=== PATIENT | male | born 1990 | race Two or more races ===

== ENCOUNTER 2017-11-10 13:42 | Emergency (ER) | payer OTHER ==
[~2017-11-10] VITALS: Ht 170.2 cm; Wt 72.6 kg
[2017-11-10 13:50] VITALS: BP 147/80
[2017-11-10] MEDS ORDERED: DiphenhydrAMINE 50mg/ml Inj IM ONE (14:00)
[2017-11-10] MEDS ORDERED: LORazepam Inj 2mg/ml 1ml IM ONE (14:00)
[2017-11-10 14:51] LABS: BASOPHILS % (AUTO) 1.6 % (0.0-2.0); EOSINOPHILS % (AUTO) 0.6 % (0.0-3.0); HEMATOCRIT 49.1 % (42.0-52.0); HEMOGLOBIN 16.3 G/DL (14.2-18.0); LYMPHOCYTES % (AUTO) 20.1 % (20.0-45.0); MEAN CORPUSCULAR VOLUME 89 FL (80-99); MONOCYTES % (AUTO) 7.8 % (1.0-10.0); NEUTROPHILS % (AUTO) 69.8 % (45.0-75.0); PLATELET COUNT 364 K/UL (150-450); RED BLOOD COUNT 5.54 M/UL (4.70-6.10); RED CELL DISTRIBUTION WIDTH 11.6 % (11.6-14.8); WHITE BLOOD COUNT 10.2 K/UL (4.8-10.8)
[2017-11-10 15:01] LABS: ALANINE AMINOTRANSFERASE 32 U/L (12-78); ALBUMIN 4.2 G/DL (3.4-5.0); ALBUMIN/GLOBULIN RATIO 1.1 (1.0-2.7); ALKALINE PHOSPHATASE 121 U/L (46-116); ANION GAP 13 mmol/L (5-15); ASPARTATE AMINO TRANSFERASE 18 U/L (15-37); BILIRUBIN,TOTAL 0.4 MG/DL (0.2-1.0); BLOOD UREA NITROGEN 12 mg/dL (7-18); CALCIUM 8.7 MG/DL (8.5-10.1); CARBON DIOXIDE 25 MMOL/L (21-32); CHLORIDE 105 MMOL/L (98-107); CREATININE 1.4 MG/DL (0.55-1.30); SODIUM 144 MMOL/L (136-145)
[2017-11-10 15:06] LABS: POTASSIUM 2.7 MMOL/L (3.5-5.1)
[2017-11-10] MEDS ORDERED: Haloperidol 5mg/ml Inj IM ONE (15:15)
--- NOTE | 2017-11-10 15:45 | Emergency Room Report ---
History of Present Illness General Chief Complaint: Medical Clearance Source: Patient (Madeline Ramirez) Present Illness HPI 27 YO male presents as a Kenneth Swan to the ED for medical clearance for incarceration. pt. was behaving abnormally in public. Per PD pt. required restraint after allegedly refusing to put-down a weapon and resisting arrest. HPI and ROS are limited due to poor pt. cooperation and AMS. (Madeline Ramirez) Allergies: Coded Allergies: No Known Allergies (Unverified , 11/10/17) Patient History Limited by: other - AMS Past Medical History: see triage record, unable to obtain Past Surgical History: unable to obtain Pertinent Family History: unable to obtain Reviewed Nursing Documentation: PMH: Agreed - unable to obtain; PSxH: Agreed - unable to obtain (Madeline Ramirez) Nursing Documentation-PMH Past Medical History: No Stated History (Madeline Ramirez) Review of Systems All Other Systems: limited - AMS/ poor pt. cooperation (Madeline Ramirez) Physical Exam Vital Signs Date Time Temp Pulse Resp B/P (MAP) Pulse Ox O2 Delivery O2 Flow Rate FiO2 11/10/17 13:40 97.8 138 22 147/80 98 Room Air 97.9 Sp02 EP Interpretation: reviewed, normal General Appearance: alert, GCS 15, non-toxic, moderate distress - Pt. rapid cycling between agressive and somnolent. Head: normocephalic, atraumatic Eyes: bilateral eye normal inspection, bilateral eye PERRL, bilateral eye other - disconjugate gaze, no obvious nystagmus. Pt. clenches eyes closed. ENT: other - lower lip abrasion, superficial Respiratory: lungs clear, normal breath sounds, no wheezing, speaking full sentences Cardiovascular #1: regular rate, rhythm, normal capillary refill Gastrointestinal: normal bowel sounds, non tender, soft Musculoskeletal: back normal, gait/station normal, normal range of motion, non- tender Neurologic: responsive - to painful stimuli, motor strength/tone normal, sensory intact, other, grossly normal Psychiatric: other - initially aggravated and aggressive, required spit mask. then became somnolent Skin: normal color, no rash, warm/dry, well hydrated, abrasions - lower inner lip abrasion. (Madeline Ramirez) Medical Decision Making PA Attestation Dr. Her is my supervising Physician whom patient management has been discussed with. (Madeline Ramirez) Diagnostic Impression: Primary Impression: Altered mental status Qualified Codes: R40.0 - Somnolence Additional Impressions: Other encephalopathy Hypokalemia ER Course Pt. presents to the ED for medical clearance for incarceration. PT C/O [ ] Ddx considered but are not limited to Head Trauma, [place], ACS, SI/HI, URI, SAH, Fractures, Dislocations, Tazer barbs, Abrasions, OD, SI/HI, psychosis, UTI, intoxication. Vital signs: are WNL, pt. is afebrile H&PE are most consistent with: Behavioral disturbance and AMS. Initially very aggravated and aggressive to the point where he almost tipped EMS gurney during triage and transfer to ED rporter. Pt. initially also required spit mask. after pharmacological interventions pt. no longer was aggressive, he became somnolent and slightly more cooperative for PE, lab work and imaging. ORDERS: -EK BPM with incomplete RBBB -CBC, CMP: unremarkable other than hypokalemia of 2.7 -UA: negative for infection see results attached. -UDS: Positive for amphetamines -Salicylates and Acetaminophen - WNL -Serum ETOH: no acute intoxication. CT Head and C-Spine: summary : NO acute fx's, dislocations or bleeds - Please see official radiology reports attached. ED INTERVENTIONS: -Ativan, Benadryl - pt. still continues to be physically disruptive and aggressive. Haldol IM was then also administered. -1 Liter NS x 3 -20meq KCL IV Re-evaluation pt. requires further ED observation until he is more alert, will re-assess for psych consult need. DISCHARGE: At this time pt. is stable for d/c to law enforcement. Will provide printed patient care instructions, and any necessary prescriptions. Care plan and follow up instructions have been discussed with the patient prior to discharge. Labs Test 11/10/17 14:17 11/10/17 19:50 White Blood Count 10.2 K/UL (4.8-10.8) Red Blood Count 5.54 M/UL (4.70-6.10) Hemoglobin 16.3 G/DL (14.2-18.0) Hematocrit 49.1 % (42.0-52.0) Mean Corpuscular Volume 89 FL (80-99) Mean Corpuscular Hemoglobin 29.5 PG (27.0-31.0) Mean Corpuscular Hemoglobin Concent 33.2 G/DL (32.0-36.0) Red Cell Distribution Width 11.6 % (11.6-14.8) Platelet Count 364 K/UL (150-450) Mean Platelet Volume 5.2 FL (6.5-10.1) Neutrophils (%) (Auto) 69.8 % (45.0-75.0) Lymphocytes (%) (Auto) 20.1 % (20.0-45.0) Monocytes (%) (Auto) 7.8 % (1.0-10.0) Eosinophils (%) (Auto) 0.6 % (0.0-3.0) Basophils (%) (Auto) 1.6 % (0.0-2.0) Sodium Level 144 MMOL/L (136-145) Potassium Level 2.7 MMOL/L (3.5-5.1) Chloride Level 105 MMOL/L (98-107) Carbon Dioxide Level 25 MMOL/L (21-32) Anion Gap 13 mmol/L (5-15) Blood Urea Nitrogen 12 mg/dL (7-18) Creatinine 1.4 MG/DL (0.55-1.30) Estimat Glomerular Filtration Rate > 60 mL/min (>60) Glucose Level 125 MG/DL (74-106) Calcium Level 8.7 MG/DL (8.5-10.1) Total Bilirubin 0.4 MG/DL (0.2-1.0) Aspartate Amino Transf (AST/SGOT) 18 U/L (15-37) Alanine Aminotransferase (ALT/SGPT) 32 U/L (12-78) Alkaline Phosphatase 121 U/L (46-116) Total Creatine Kinase 138 U/L (26-308) Total Protein 8.1 G/DL (6.4-8.2) Albumin 4.2 G/DL (3.4-5.0) Globulin 3.9 g/dL Albumin/Globulin Ratio 1.1 (1.0-2.7) Salicylates Level 0.7 ug/mL (2.8-20) Acetaminophen Level < 2 MCG/ML (10-30) Serum Alcohol 3 mg/dL Urine Opiates Screen Negative (NEGATIVE) Urine Barbiturates Screen Negative (NEGATIVE) Phencyclidine (PCP) Screen Negative (NEGATIVE) Urine Amphetamines Screen Positive (NEGATIVE) Urine Benzodiazepines Screen Negative (NEGATIVE) Urine Cocaine Screen Negative (NEGATIVE) Urine Marijuana (THC) Screen Negative (NEGATIVE) (Madeline Ramirez) ER Course After prolonged observation patient has not become more awake and alert There is no report of homicidal or suicidal thought Patient is under arrest and under custody by police department And is taken by them for further booking patient requires further [facility] M.D. follow-up in the morning Labs Test 11/10/17 14:17 11/10/17 19:50 White Blood Count 10.2 K/UL (4.8-10.8) Red Blood Count 5.54 M/UL (4.70-6.10) Hemoglobin 16.3 G/DL (14.2-18.0) Hematocrit 49.1 % (42.0-52.0) Mean Corpuscular Volume 89 FL (80-99) Mean Corpuscular Hemoglobin 29.5 PG (27.0-31.0) Mean Corpuscular Hemoglobin Concent 33.2 G/DL (32.0-36.0) Red Cell Distribution Width 11.6 % (11.6-14.8) Platelet Count 364 K/UL (150-450) Mean Platelet Volume 5.2 FL (6.5-10.1) Neutrophils (%) (Auto) 69.8 % (45.0-75.0) Lymphocytes (%) (Auto) 20.1 % (20.0-45.0) Monocytes (%) (Auto) 7.8 % (1.0-10.0) Eosinophils (%) (Auto) 0.6 % (0.0-3.0) Basophils (%) (Auto) 1.6 % (0.0-2.0) Sodium Level 144 MMOL/L (136-145) Potassium Level 2.7 MMOL/L (3.5-5.1) Chloride Level 105 MMOL/L (98-107) Carbon Dioxide Level 25 MMOL/L (21-32) Anion Gap 13 mmol/L (5-15) Blood Urea Nitrogen 12 mg/dL (7-18) Creatinine 1.4 MG/DL (0.55-1.30) Estimat Glomerular Filtration Rate > 60 mL/min (>60) Glucose Level 125 MG/DL (74-106) Calcium Level 8.7 MG/DL (8.5-10.1) Total Bilirubin 0.4 MG/DL (0.2-1.0) Aspartate Amino Transf (AST/SGOT) 18 U/L (15-37) Alanine Aminotransferase (ALT/SGPT) 32 U/L (12-78) Alkaline Phosphatase 121 U/L (46-116) Total Creatine Kinase 138 U/L (26-308) Total Protein 8.1 G/DL (6.4-8.2) Albumin 4.2 G/DL (3.4-5.0) Globulin 3.9 g/dL Albumin/Globulin Ratio 1.1 (1.0-2.7) Salicylates Level 0.7 ug/mL (2.8-20) Acetaminophen Level < 2 MCG/ML (10-30) Serum Alcohol 3 mg/dL Urine Opiates Screen Negative (NEGATIVE) Urine Barbiturates Screen Negative (NEGATIVE) Phencyclidine (PCP) Screen Negative (NEGATIVE) Urine Amphetamines Screen Positive (NEGATIVE) Urine Benzodiazepines Screen Negative (NEGATIVE) Urine Cocaine Screen Negative (NEGATIVE) Urine Marijuana (THC) Screen Negative (NEGATIVE) (Feng Doherty DO) EKG Diagnostic Results EP Interpretation: Dr. Davis Rate: normal - 70 bpm Rhythm: NSR ST Segments: no acute changes Other Impression incomplete RBBB ASA given to the pt in ED: No PA Scribe Text This Interpretation was scribed by CECILIA Ramirez. (Madeline Ramirez) CT/MRI/US Diagnostic Results CT/MRI/US Diagnostic Results #1: Imaging Test Ordered: CT Head No contrast Impression " No evidence of acute fracture, hemorrhage, or intracranial process ." Per official radiology report- Please see report for specific details. CT/MRI/US Diagnostic Results #2: Imaging Test Ordered: Ct C- Spine Impression " no evidence of acute fractures or dislocations." Per official radiology report - Please see report for specific details. (Madeline Ramirez) Last Vital Signs Date Time Temp Pulse Resp B/P (MAP) Pulse Ox O2 Delivery O2 Flow Rate FiO2 11/10/17 13:40 97.8 138 22 147/80 98 Room Air 97.9 (Madeline Ramirez) Status: improved (Feng Doherty DO) Disposition: D/C TO LAW ENFORCEMENT IN [place] Condition: Improved Signed Out To: Dr. Doherty (Madeline Ramirez) Referrals: NOT CHOSEN IPA/,REFERRING (PCP) Additional Instructions: Follow-up johann Kaiser in the morning Madeline Ramirez Nov 10, 2017 15:45 Feng Doherty DO Nov 11, 2017 04:33
[2017-11-10 15:48] VITALS: BP 134/79
--- NOTE | 2017-11-10 16:44 | Diagnostic Imaging Report ---
Indication: Pain. Altered mental status Technique: Continuous helical CT scanning of the head was performed utilizing automated exposure control without intravenous contrast material. Axial and coronal reconstructions were obtained. Comparison: None CT dose: Total DLP 1657.41 mGycm; CTDI vol 70.38,15.41 mGy Findings: There is no acute intracranial hemorrhage, midline shift or cortical edema. The ventricles, sulci and cisterns are within normal limits for age. There is a CSF attenuation structure in the left middle cranial fossa compatible with an arachnoid cyst. Posterior fossa are grossly unremarkable. Mastoid air cells clear. Mild mucosal thickening in the paranasal sinuses. Imaged orbits are seen unremarkable. No depressed calvarial fracture. No focal soft tissue swelling/scalp hematoma. IMPRESSION: No evidence of acute intracranial hemorrhage, midline shift or cortical edema. No skull fracture. MRI may be obtained for more sensitive evaluation as clinically indicated. The CT scanner at [facility] is accredited by the [employer] and the scans are performed using protocols designed to limit radiation exposure to as low as reasonably achievable to attain images of sufficient resolution adequate for diagnostic evaluation.
--- NOTE | 2017-11-10 16:47 | Diagnostic Imaging Report ---
Indication: Pain status post injury Technique: CT cervical spine was performed utilizing automated exposure control without intravenous contrast material. Axial, sagittal and coronal images were generated. CT dose: Total DLP 1657.41 mGycm; CTDI vol 70.38,15.41 mGy Comparison: None Findings: Cervical lordosis is maintained. No evidence to suggest spondylolisthesis. No evidence of acute fracture. Anterior and lateral atlantodental intervals within normal limits. Vertebral body heights and disc spaces preserved. No significant central canal stenosis or bony foraminal narrowing. Please note that evaluation of the disks, central cord and nerves is better performed on MRI, which can be obtained for further evaluation as clinically indicated. No prevertebral fluid collection or other abnormality is appreciated. Imaged thyroid grossly unremarkable. Lung apices grossly clear. IMPRESSION: No evidence of acute fracture or malalignment. The CT scanner at [facility] is accredited by the [employer] and the scans are performed using protocols designed to limit radiation exposure to as low as reasonably achievable to attain images of sufficient resolution adequate for diagnostic evaluation.
[2017-11-10 17:15] VITALS: BP 128/74
[2017-11-10 17:45] LABS: CREATINE KINASE 138 U/L (26-308)
[2017-11-10 19:15] VITALS: BP 121/70
[2017-11-10 21:15] VITALS: BP 132/74
[2017-11-10 23:15] VITALS: BP 118/75
[2017-11-11 01:15] VITALS: BP 119/72
[2017-11-11 03:15] VITALS: BP 122/72
[2017-11-11 05:00] VITALS: BP_SYST 113; BP_SYST 122; BP_DIAS 69; BP_DIAS 72
--- NOTE | 2017-11-12 15:45 | Cardiology Report ---
APPROVED REPORT EKG Measurement Heart [id number] [id number] Normal sinus rhythm Incomplete right bundle branch block Possible Inferior infarct, age undetermined Abnormal ECG
== END 2017-11-11 05:00 ==
LOC: EDBD 13:42 → EMR 13:53 → EDBD 13:53 → CANBEDREQ 21:23 → EMR 11-11 05:00
DX: G93.49 Other encephalopathy (principal); E87.6 Hypokalemia; S00.511A Abrasion of lip, initial encounter; X58.XXXA Exposure to other specified factors, initial encounter; Y92.9 Unspecified place or not applicable
CPT/HCPCS: 36415; 70450; 72125; 80053; 80307; 82550; 85025; 93005; 96361; 96365; 96366; 96372; 99284; G0480; J1200; J1630; J3480; 80329